=== PATIENT | male | born 1945 | race Caucasian/White ===

== ENCOUNTER 2016-12-08 11:51 | Day surgery (SDC) | payer MEDICARE, OTHER ==
[~2016-12-08] VITALS: Ht 167.6 cm; Wt 74.9 kg
[2016-12-08] VITALS (15 sets, daily range): BP systolic 134–167; BP diastolic 58–77; PULSE 54–64; RESP 5–21; Ht 167.6 cm; Wt 74.9 kg
[2016-12-08] MEDS ORDERED: ATEN50TA PO (12:33)
[2016-12-08] MEDS ORDERED: LISI10TA2 PO (12:35)
[2016-12-08] MEDS ORDERED: SITA1TAB5 PO (12:35)
[2016-12-08] MEDS ORDERED: OXYC30TA PO (12:37)
[2016-12-08 13:22] LABS: BASOPHILS % 0.5 % (0.0-2.0); EOSINOPHILS # 0.2 10^3/ul (0.0-0.5); HEMATOCRIT 41.5 % (42.0-52.0); HEMOGLOBIN 13.4 g/dl (14.0-18.0); LYMPHOCYTES # 1.5 10^3/ul (0.8-2.9); LYMPHOCYTES % 19.4 % (15.0-51.0); MEAN CORPUSCULAR HEMOGLOBIN 27.1 pg (29.0-33.0); MEAN CORPUSCULAR HGB CONC 32.3 g/dl (32.0-37.0); MEAN CORPUSCULAR VOLUME 83.8 fl (82.0-101.0); MEAN PLATELET VOLUME 10.8 fl (7.4-10.4); MONOCYTE # 0.6 10^3/ul (0.3-0.9); MONOCYTES % 7.4 % (0.0-11.0); NEUTROPHILS % 70.3 % (39.0-77.0); PLATELET COUNT 174 10^3/UL (140-415); RED BLOOD COUNT 4.95 10^6/ul (4.70-6.10); RED CELL DISTRIBUTION WIDTH 13.5 % (11.5-14.5); WHITE BLOOD COUNT 7.5 10^3/ul (4.8-10.8)
[2016-12-08 13:36] LABS: INR 0.97; PROTIME 12.9 Sec (12.2-14.2)
[2016-12-08 13:37] LABS: PARTIAL THROMBOPLASTIN TIME 30.2 Sec (25.0-35.0)
[2016-12-08 13:39] LABS: ALBUMIN/GLOBULIN RATIO 1.21; BILIRUBIN,INDIRECT 0.3 mg/dl (0-1.1); BILIRUBIN,TOTAL 0.3 mg/dl (0.2-1.3); TOTAL PROTEIN 7.3 g/dl (6.1-8.1)
[2016-12-08 13:40] LABS: POTASSIUM 4.6 mmol/L (3.5-5.1)
[2016-12-08 13:41] LABS: CALCIUM 9.4 mg/dl (8.4-10.2); CREATININE 1.16 mg/dl (0.61-1.24)
--- NOTE | 2016-12-08 14:02 | RADRPT ---
PROCEDURE: XR Chest. CLINICAL INDICATION: Preop TECHNIQUE: Single frontal view of the chest was obtained COMPARISON: None FINDINGS: No pleural effusion or pneumothorax. No consolidation. Normal cardiac silhouette. Calcified aortic arch suggestive of chronic systemic hypertension. No acute osseous abnormality. IMPRESSION: No acute cardiopulmonary disease. RPTAT: EE Odilia Gonzalez Physician Date Time Electronically viewed and signed by Odilia Gonzalez Physician on 12/08/2016 14:01 /
[2016-12-08] MEDS ORDERED: IODIXANOL LOCM 100 ML BTL ONE (14:13)
[2016-12-08] MEDS ORDERED: FENTAnyl 50 MCG/ML VIAL ONE (14:13)
[2016-12-08] MEDS ORDERED: MIDAZOLAM 1 MG/ML 2 ML INJ ONE (14:13)
[2016-12-08] MEDS ORDERED: LIDOCAINE 1% (MDV) 20 ML INJ ONE (14:14)
[2016-12-08] MEDS ORDERED: IOHEXOL 350MG/ML 50 ML BTL ONE (15:11)
[2016-12-08] MEDS ORDERED: HEPARIN 1000 UNITS/ML 10 ML INJ ONE (15:11)
--- NOTE | 2016-12-08 15:25 | OPR ---
Date/Time of Note Date/Time of Note DATE: 12/08/16 TIME: 15:23 Operative Report Procedure Date: Dec 08, 2016 Preoperative Diagnosis PVD Postoperative Diagnosis PVD Operation Performed LLE Angioplasty and atherectomy Surgeon: MATTHEW BERGMAN MD Anesthesia Type: MAC Estimated Blood Loss: 0 - 10 ml's Transfusion Required: no Specimen: none Grafts/Implants: none Complications: no Pt Condition Post Procedure: critical Indications PVD Operative\Procedure Findings PVD Procedure Description Dictated MATTHEW BERGMAN MD Dec 08, 2016 15:25
--- NOTE | 2016-12-08 21:45 | OPR ---
DATE OF OPERATION: 12/08/2016 PREOPERATIVE DIAGNOSIS: Peripheral vascular disease. POSTOPERATIVE DIAGNOSIS: Peripheral vascular disease. OPERATION PERFORMED: 1. Left external iliac artery atherectomy. 2. Left common femoral artery atherectomy. 3. Left external iliac artery angioplasty 8 x 40 mm balloon. 4. Left common femoral artery angioplasty 8 x 40 mm balloon. 5. Abdominal aortogram. 6. Interpretation and supervision of abdominal aortogram. 7. Bilateral lower extremity runoff. 8. Ultrasound guidance into central artery. 9. Fluoroscopy. 10. Conscious sedation for 1 hour. OPERATIVE TECHNIQUE: Risks, benefits, complications, alternative therapies explained to the patient, consent obtained. Patient was placed supine position, prepped and draped in usual sterile fashion. Lidocaine 1% was used throughout the operation for local anesthesia. A time-out was called. Access was gained in the right common femoral artery. An 0.035 Bentson wire advanced. A 5-Macedonian sheath advanced. Rim catheter advanced. Abdominal aortogram was done. Next, we advanced the catheter from right to left, and left-sided lower extremity runoff was done followed by right lower extremity runoff at the end of the case. Interpretation and supervision of the abdominal aortogram with lower extremity runoff revealed: 1. Abdominal aorta normal. 2. Left common iliac artery normal. 3. Left internal iliac artery 50% stenosis. 4. Left external iliac artery and common femoral artery at their junction has a 99% stenosis. 5. Left superficial femoral artery 100% occluded and left profunda was patent. Popliteal artery showed up briefly and completely was occluded with anterior tibial artery, posterior tibial artery showing up at the ankle, about 1.5 mm vessels. 6. On the right side, right common iliac artery normal. Right internal iliac artery 50% stenosis. Right external iliac artery normal. Right common femoral artery normal. Superficial femoral artery completely occluded. Right profunda patent. Right popliteal artery again showed up at the knee but completely occluded at the trifurcation. Posterior tibial artery was a 2 mm vessel which showed up in the mid leg going all the way down to the foot. The peroneal artery was also diseased vessel at the leg. Patient was given 5000 units of IV heparin. The sheath was exchanged to a long 6 sheath. Atherectomy of the left common femoral artery and external iliac artery was performed followed by an angioplasty of both vessels using 8 x 40 mm balloon. The final angiogram revealed less than 10% stenosis in this area. There was good flow down to the left common femoral artery and into the profunda femoris. This patient will be evaluated for possible left femoral pedal bypass grafting and possible right femoral pedal bypass grafting. The sheath was then removed and the patient tolerated procedure well. Dictated By: Jorge Solorio MD /[email or web address] /Document#: [id number]
--- NOTE | 2016-12-11 11:09 | RADRPT ---
Vent Rate: 59 bpm RR Interval: 0 msec WA Interval: 154 msec QRS Duration: 94 msec QT Interval: 398 msec QTC Interval: 394 msec P-R-T Herrick: 54 - 65 - 57 degrees Sinus bradycardia Otherwise normal ECG Electronically Signed By: Macario Fuentes [id number]
== END 2016-12-08 19:30 | disposition home or self-care (01) ==
LOC: SDS 11:51
PROVIDERS: ATTEND Thoracic Surgery (Cardiothoracic Vascular Surgery)
DX: I73.9 Peripheral vascular disease, unspecified (principal); I77.1 Stricture of artery; E11.9 Type 2 diabetes mellitus without complications; I10 Essential (primary) hypertension
CPT/HCPCS: 0238T; 37220; 37225; 71010; 80053; 82962; 85025; 85610; 85730; 93005; C1725; C1760; C1887; C1894; J1644; J2250; J3010; Q9967; Z7610; 75630; C1714